=== PATIENT | male | born 1990 | race Caucasian/White ===

== ENCOUNTER 2024-12-27 15:51 | Emergency (ER) | payer MEDICAID ==
[~2024-12-27] VITALS: Ht 180.3 cm; Wt 99.8 kg
[2024-12-27 18:41] VITALS: BP 130/75; TEMP 98.5; O2SAT 99
== END 2024-12-27 18:42 | disposition left against medical advice (07) ==
LOC: ER 15:59
DX: M54.50 Low back pain, unspecified (principal); Z60.2 Problems related to living alone; V43.52XA Car driver injured in collision with other type car in traffic accident, initial encounter; Y93.89 Activity, other specified; Y92.415 Exit ramp or entrance ramp of street or highway as the place of occurrence of the external cause; Y99.8 Other external cause status
CPT/HCPCS: 72100-TC